=== PATIENT | female | born 1955 | race Caucasian/White ===

== ENCOUNTER 2017-11-24 16:06 | Emergency (ER) | payer OTHER, BC ==
--- NOTE | 2017-11-24 17:00 | EDM.PDOC ---
ED HPI GENERAL MEDICAL PROBLEM - General Chief Complaint: Lower Extremity Injury/Pain Stated Complaint: PAIN RT LEG Time Seen by Provider: 11/24/17 16:36 Source of Information: Reports: Patient History Limitations: Reports: No Limitations - History of Present Illness INITIAL COMMENTS - FREE TEXT/NARRATIVE: HISTORY AND PHYSICAL: History of present illness: Patient is a 62-year-old female who presents to the emergency room with complaints of right lawrence and ankle pain. She states she was walking and hit her leg against some material which caused immediate pain, swelling and bruising. She fell "on my butt". Denies hitting her head or any loss of conciousness. She is ambulatory does have pain to those areas with weightbearing. She denies any numbness or tingling to the affected extremity. Review of systems: As per history of present illness and below otherwise all systems reviewed and negative. Past medical history: As per history of present illness and as reviewed below otherwise noncontributory. Surgical history: As per history of present illness and as reviewed below otherwise noncontributory. Social history: No reported history of drug or alcohol abuse. Family history: As per history of present illness and as reviewed below otherwise noncontributory. Physical exam: General: Well-developed and well-nourished 62-year-old female. Alert and oriented. Nontoxic appearing and in no acute distress. HEENT: Atraumatic, normocephalic, pupils equal and reactive bilaterally, negative for conjunctival pallor or scleral icterus, mucous membranes moist, throat clear, neck supple, nontender, trachea midline. No drooling or trismus noted. No meningeal signs Lungs: Clear to auscultation, breath sounds equal bilaterally, chest nontender. Heart: S1S2, regular rate and rhythm without overt murmur Abdomen: Soft, nondistended, nontender. Negative for masses or hepatosplenomegaly. Negative for costovertebral tenderness. Pelvis: Stable nontender. Genitourinary: Deferred. Rectal: Deferred. Skin: Intact, warm, dry. Mild bruising and soft tissue swelling noted to the distal right tib-fib. No lesions or rashes noted. Extremities: Moves all extremities per self without difficulty or deficits. Does have mild tenderness over the distal right lawrence into the lateral malleolus. Strong pedal pulses bilaterally. Good flexion and extension of knee and ankle. negative for cords or calf pain. Neurovascular unremarkable. C-spine/Back: No pinpoint vertebral tenderness upon palpation. No crepitus, step -offs or obvious deformities. Patient is ambulatory Neuro: Awake, alert, oriented. Cranial nerves II through XII unremarkable. Cerebellum unremarkable. Motor and sensory unremarkable throughout. Exam nonfocal. Notes: I did offer the patient Toradol, which she declines at this time. Right tib-fib x-ray shows a questionable cortical lucency in the proximal fibular neck. The radiologist suggests correlating this with point tenderness. She does not have any tenderness along this area. Did share this information with the patient. States her RLE pain has improved somewhat. I will place her in a cam walker boot with crutches. I encouraged her to follow up with the orthopedic provider in the next 3-4 days. I will give her Flexeril (#12) for her low back pain. She does not have any sciatica related to this. She voices understanding and is agreeable to plan of care. She denies any further questions at this time. Diagnostics: X-ray right tib-fib, right ankle, lumbar spine Therapeutics: Ice, Camwalker boot, crutches Impression: Contusion Lumbago Plan: 1. Please use the doug wrap and crutches for the next 2-3 days for comfort. 2. Tylenol and/or ibuprofen as needed for pain management. You may use the Flexeril as needed for muscle spasms. This medication may cause drowsiness do not take it will driving her needing to be functioning outside of the house. 3. Follow-up with your primary care provider in the next couple days. Return to the ED as needed and as discussed. Definitive disposition and diagnosis as appropriate pending reevaluation and review of above. Onset: Today Duration: Minutes: Location: Reports: Back, Lower Extremity, Right Left Lower Leg Pain Score (Numeric/FACES): 5 - Related Data Allergies Allergy/AdvReac Type Severity Reaction Status Date / Time meperidine [From Demerol] Allergy Vomiting Verified 11/24/17 16:39 Home Meds: Home Meds . [No Known Home Meds] 11/24/17 [History] Past Medical History Endocrine/Metabolic History: Reports: Hyperthyroidism - Infectious Disease History Infectious Disease History: Reports: Chicken Pox, Measles, Mumps, Rubella Social & Family History - Family History Family Medical History: Noncontributory - Tobacco Use Smoking Status *Q: Current Every Day Smoker Years of Tobacco use: 39 Packs/Tins Daily: 0.5 - Caffeine Use Caffeine Use: Reports: Coffee - Recreational Drug Use Recreational Drug Use: No Review of Systems - Review of Systems Review Of Systems: ROS reveals no pertinent complaints other than HPI. ED EXAM, GENERAL - Physical Exam Exam: See Below (See dictation) Course - Vital Signs Last Recorded V/S: Last Vital Signs Temp 98.3 F 11/24/17 18:30 Pulse 84 11/24/17 18:30 Resp 12 11/24/17 18:30 BP 136/79 11/24/17 18:30 Pulse Ox 97 11/24/17 18:30 - Orders/Labs/Meds Orders: Active Orders 24 hr Category Date Time Status Lumbar Spine 2 or 3V [CR] Stat Exams 11/24/17 17:04 Taken Tibia Fibula Rt [CR] Stat Exams 11/24/17 16:37 Taken DME for Discharge [COMM] Stat Oth 11/24/17 17:44 Ordered Departure - Departure Time of Disposition: 18:39 Disposition: Home, Self-Care 01 Clinical Impression: Lumbago Qualifiers: Chronicity: acute Back pain laterality: midline Sciatica presence: without sciatica Qualified Code(s): M54.5 - Low back pain Contusion Qualifiers: Encounter type: initial encounter Contusion area: lower leg Laterality: right Qualified Code(s): S80.11XA - Contusion of right lower leg, initial encounter - Discharge Information Instructions: Contusion, [id number] Referrals: PCP,None [Primary Care Provider] - Forms: ED Department Discharge Additional Instructions: The following information is given to patients seen in the emergency department who are being discharged to home. This information is to outline your options for follow-up care. We provide all patients seen in our emergency department with a follow-up referral. The need for follow-up, as well as the timing and circumstances, are variable depending upon the specifics of your emergency department visit. If you don't have a primary care physician on staff, we will provide you with a referral. We always advise you to contact your personal physician following an emergency department visit to inform them of the circumstance of the visit and for follow-up with them and/or the need for any referrals to a consulting specialist. The emergency department will also refer you to a specialist when appropriate. This referral assures that you have the opportunity for follow-up care with a specialist. All of these measure are taken in an effort to provide you with optimal care, which includes your follow-up. Under all circumstances we always encourage you to contact your private physician who remains a resource for coordinating your care. When calling for follow-up care, please make the office aware that this follow-up is from your recent emergency room visit. If for any reason you are refused follow-up, please contact the Emergency Department at and asked to speak to the emergency department charge nurse. [facility] [address] [place] [id number] Special[facility] - [facility] [address] [place] [address], [address] [place] [address] 1. Please use the doug wrap and crutches for the next 2-3 days for comfort. 2. Tylenol and/or ibuprofen as needed for pain management. You may use the Flexeril as needed for muscle spasms. This medication may cause drowsiness do not take it will driving her needing to be functioning outside of the house. 3. Follow-up with your primary care provider in the next couple days. Return to the ED as needed and as discussed. - My Orders Last 24 Hours: My Active Orders 11/24/17 16:37 Tibia Fibula Rt [CR] Stat 11/24/17 17:04 Lumbar Spine 2 or 3V [CR] Stat 11/24/17 17:44 DME for Discharge [COMM] Stat - Assessment/Plan Last 24 Hours: My Active Orders 11/24/17 16:37 Tibia Fibula Rt [CR] Stat 11/24/17 17:04 Lumbar Spine 2 or 3V [CR] Stat 11/24/17 17:44 DME for Discharge [COMM] Stat
[2017-11-24 18:31] VITALS: BP 136/79
--- NOTE | 2017-11-25 18:11 | CR ---
EXAM DATE: 11/24/17 PATIENT'S AGE: 62 Patient: TATYANA PEREZ Facility: [place], [place] Site . Site : 1955 Study: XRay Extremity Right tib fib [id number]/29/2018 5:59:10 PM Ordering Physician: Doctor Quesada Final Report: INDICATION: PAIN, FALL TECHNIQUE: Two views of the right tibia/fibula COMPARISON: None FINDINGS: Bones: Questionable cortical lucency along the proximal fibular neck seen only on the AP projection. Joint spaces: Unremarkable. Soft tissues: Unremarkable. IMPRESSION: Questionable cortical lucency along the proximal fibular neck seen only on the AP projection. Consider dedicated right knee radiographs to further evaluate as well as point tenderness. Dictated by Anand Orantes MD @ 11/24/2017 6:03:37 PM Dictated by: Anand Orantes MD @ 11/24/2017 18:03:49 (Electronic Signature) Report Signed by Proxy. [facility]
--- NOTE | 2017-11-25 18:12 | CR ---
EXAM DATE: 11/24/17 PATIENT'S AGE: 62 Patient: TATYANA PEREZ Facility: [place], [place] Site . Site : 1955 Study: XRay Spine Lumbar [id number]/29/2018 5:59:37 PM Ordering Physician: Doctor Quesada Final Report: INDICATION: PAIN, FELL TECHNIQUE: Lumbar spine 3 view COMPARISON: None FINDINGS: Bones: Chronic remote traumatic deformity of the coccyx. No fractures or significant bone lesions. Joints: Mild degenerative changes. Soft tissues: Multiple calcifications overlying the right renal shadow. IMPRESSION: 1. No acute abnormality of the lumbar spine. 2. Multiple calcifications overlying the right renal shadow. Differential diagnosis includes intrarenal calculi versus gallstones MRI. Dictated by Anand Orantes MD @ 11/24/2017 6:06:26 PM Dictated by: Anand Orantes MD @ 11/24/2017 18:06:30 (Electronic Signature) Report Signed by Proxy. [facility]
== END 2017-11-24 18:45 | disposition home or self-care (01) ==
LOC: MW.ED 16:06
DX: S80.11XA Contusion of right lower leg, initial encounter (principal); M54.5 Low back pain; F17.210 Nicotine dependence, cigarettes, uncomplicated; Z88.5 Allergy status to narcotic agent; W22.8XXA Striking against or struck by other objects, initial encounter
CPT/HCPCS: 72100; 72100-26; 73590-26-RT; 73590-RT; 99283

== ENCOUNTER 2018-10-12 17:02 | Emergency (ER) | payer OTHER, BC ==
[2018-10-12 17:25] VITALS: BP 136/82
[2018-10-12] MEDS ORDERED: Lidocaine 1% 20 ML MDV INJECT ONE (17:27)
[2018-10-12] MEDS ORDERED: Bupivacaine 0.5% 10 ML SDV INJECT ONE (17:27)
--- NOTE | 2018-10-12 18:12 | EDM.PDOC ---
ED HPI GENERAL MEDICAL PROBLEM - General Chief Complaint: Upper Extremity Injury/Pain Stated Complaint: HAND INJURY Time Seen by Provider: 10/12/18 17:05 Source of Information: Reports: Patient History Limitations: Reports: No Limitations - History of Present Illness INITIAL COMMENTS - FREE TEXT/NARRATIVE: History of present illness: []Patient cut her left thumb at work on a sharp metal object. Not up-to-date with tetanus denies any other injuries Review of systems: As per history of present illness and below otherwise all systems reviewed and negative. Past medical history: As per history of present illness and as reviewed below otherwise noncontributory. Surgical history: As per history of present illness and as reviewed below otherwise noncontributory. Social history: No reported history of drug or alcohol abuse. Family history: As per history of present illness and as reviewed below otherwise noncontributory. Physical exam: General: Well developed, well nourished in NAD HEENT: Atraumatic, normocephalic, pupils reactive, negative for conjunctival pallor or scleral icterus, mucous membranes moist, throat clear, neck supple, nontender, trachea midline. Lungs: Clear to auscultation, breath sounds equal bilaterally, chest nontender. Heart: S1S2, regular, negative for clicks, rubs, or JVD. Abdomen: NABS, Soft, nondistended, nontender. Negative for masses or hepatosplenomegaly. Negative for costovertebral tenderness. Pelvis: Stable nontender. Genitourinary: Deferred. Rectal: Deferred. Extremities: +1 cm linear laceration. Neurovascular unremarkable. Neuro: Awake, alert, oriented. Cranial nerves II through XII unremarkable. Cerebellum unremarkable. Motor and sensory unremarkable throughout. Exam nonfocal. Skin:warm and dry Diagnostics: None Therapeutics: Wound sutured, tetanus status updated ED Course: Unremarkable Impression: Left thumb laceration Prescriptions: None Plan: Sutures out in 7-10 days Definitive disposition and diagnosis as appropriate pending reevaluation and review of above. left thumb laceration Pain Score (Numeric/FACES): 6 - Related Data Allergies Allergy/AdvReac Type Severity Reaction Status Date / Time meperidine [From Demerol] Allergy Vomiting Verified 10/12/18 17:24 Home Meds: Home Meds . [No Known Home Meds] 11/24/17 [History] Past Medical History HEENT History: Reports: None Cardiovascular History: Reports: None Gastrointestinal History: Reports: None Genitourinary History: Reports: None Psychiatric History: Reports: None Endocrine/Metabolic History: Reports: Hyperthyroidism - Infectious Disease History Infectious Disease History: Reports: Chicken Pox, Measles, Mumps Social & Family History - Family History Family Medical History: Noncontributory - Tobacco Use Smoking Status *Q: Current Every Day Smoker Years of Tobacco use: 40 Packs/Tins Daily: 0.5 - Caffeine Use Caffeine Use: Reports: Coffee - Recreational Drug Use Recreational Drug Use: No Review of Systems - Review of Systems Review Of Systems: ROS reveals no pertinent complaints other than HPI. ED EXAM, GENERAL - Physical Exam Exam: See Below (See history of present illness) Course - Vital Signs Last Recorded V/S: Last Vital Signs Temp 98.0 F 10/12/18 17:23 Pulse 94 10/12/18 17:23 Resp 20 10/12/18 17:23 BP 136/82 10/12/18 17:23 Pulse Ox 95 10/12/18 17:23 - Orders/Labs/Meds Meds: Medications Discontinued Medications Generic Name Dose Route Start Last Admin Trade Name Eron PRN Reason Stop Dose Admin Bupivacaine HCl 10 ml 10/12/18 17:27 Sensorcaine-Mpf 0.5% INJECT 10/12/18 17:28 ONETIME ONE Lidocaine HCl Confirm 10/12/18 17:32 Xylocaine-Mpf 1% Administered 10/12/18 17:33 Dose 10 mls @ as directed .ROUTE .STK-MED ONE Lidocaine HCl 20 ml 10/12/18 17:27 Xylocaine 1% INJECT 10/12/18 17:28 ONETIME ONE Departure - Departure Time of Disposition: 18:10 Disposition: Home, Self-Care 01 Condition: Good Clinical Impression: Laceration of left thumb Qualifiers: Encounter type: initial encounter Damage to nail status: without damage Foreign body presence: without foreign body Qualified Code(s): S61.012A - Laceration without foreign body of left thumb without damage to nail, initial encounter - Discharge Information *PRESCRIPTION DRUG MONITORING PROGRAM REVIEWED*: No *COPY OF PRESCRIPTION DRUG MONITORING REPORT IN PATIENT JAN: No Referrals: PCP,Unknown [Primary Care Provider] - Additional Instructions: The following information is given to patients seen in the emergency department who are being discharged to home. This information is to outline your options for follow-up care. We provide all patients seen in our emergency department with a follow-up referral. The need for follow-up, as well as the timing and circumstances, are variable depending upon the specifics of your emergency department visit. If you don't have a primary care physician on staff, we will provide you with a referral. We always advise you to contact your personal physician following an emergency department visit to inform them of the circumstance of the visit and for follow-up with them and/or the need for any referrals to a consulting specialist. The emergency department will also refer you to a specialist when appropriate. This referral assures that you have the opportunity for follow-up care with a specialist. All of these measure are taken in an effort to provide you with optimal care, which includes your follow-up. Under all circumstances we always encourage you to contact your private physician who remains a resource for coordinating your care. When calling for follow-up care, please make the office aware that this follow-up is from your recent emergency room visit. If for any reason you are refused follow-up, please contact the [facility] Emergency Department at and asked to speak to the emergency department charge nurse. Sutures out in `10-14 days,Take meds as directed, follow up with your primary care physician, return to ER if symptoms worsen or change. [facility] [address] [place] [id number]
[2018-10-12] MEDS ORDERED: Diphtheria,Pertussis(Acell),Tetanus Vaccine 0.5 ML Syringe IM ONE (18:20)
== END 2018-10-12 18:40 | disposition home or self-care (01) ==
LOC: MW.ED 17:02
DX: S61.012A Laceration without foreign body of left thumb without damage to nail, initial encounter (principal); W26.8XXA Contact with other sharp object(s), not elsewhere classified, initial encounter; Z23 Encounter for immunization; Z88.8 Allergy status to other drugs, medicaments and biological substances
CPT/HCPCS: 12001; 90471; 90715; 99282; J3490; J2001

== ENCOUNTER 2022-04-09 14:08 | Emergency (ER) | payer MEDICARE, OTHER ==
[2022-04-09 15:26] VITALS: BP 134/77; PULSE 87
[2022-04-09] MEDS ORDERED: Sodium Chloride 0.9% 2.5 ML Syringe FLUSH PRN (16:01)
[2022-04-09] MEDS ORDERED: Sodium Chloride 0.9% 10 ML Syringe FLUSH PRN (16:01)
[2022-04-09] MEDS ORDERED: Lidocaine 5% 700 MG Patch TOP ONE (16:06)
[2022-04-09] MEDS: Acetaminophen 500 MG Tab PO ONE ×2 (17:05→17:11)
[2022-04-09 17:24] LABS: CARBON DIOXIDE,CO2 26.7 mmol/L (21.0-32.0)
== END 2022-04-09 19:17 | disposition left against medical advice (07) ==
LOC: MW.ED 14:08
DX: R42 Dizziness and giddiness (principal); M25.511 Pain in right shoulder; R51.9 Headache, unspecified; Z88.8 Allergy status to other drugs, medicaments and biological substances
CPT/HCPCS: 36415; 71045; 80053; 81003; 84484; 85025; 85610; 93005; 99284; A9270; J3490

== ENCOUNTER 2024-09-12 06:45 | Emergency (ER) | payer MEDICARE, OTHER ==
[2024-09-12 07:23] LABS: BASOPHILS ABSOLUTE AUTO 0.04 K/uL (0.00-0.20); BASOPHILS PERCENT AUTO 0.4 % (0.0-1.0); EOSINOPHILS PERCENT AUTO 1.1 % (0.0-6.0); HEMATOCRIT 39.1 % (37.0-47.0); HEMOGLOBIN 13.7 g/dL (12.0-16.0); IMMATURE GRAN ABSOLUTE AUTO 0.02 K/uL (0.00-0.05); IMMATURE GRAN PERCENT AUTO 0.2 % (0.0-0.4); LYMPHOCYTES ABSOLUTE AUTO 3.38 K/uL (1.00-4.80); LYMPHOCYTES PERCENT AUTO 35.9 % (24.0-44.0); MEAN CORPUSCULAR HEMOGLOBIN 32.2 pg (28.0-32.0); MEAN PLATELET VOLUME 10.7 fL (9.4-12.3); MONOCYTES ABSOLUTE AUTO 0.63 K/uL (0.00-0.80); MONOCYTES PERCENT AUTO 6.7 % (0.0-8.0); NEUTROPHILS ABSOLUTE AUTO 5.25 K/uL (1.80-7.70); NEUTROPHILS PERCENT AUTO 55.7 % (41.0-71.0); PLATELET COUNT,PLT 235 K/uL (150-400); RED BLOOD CELL COUNT 4.25 M/uL (4.10-5.30); WHITE BLOOD CELL COUNT,WBC 9.42 K/uL (3.9-11.3)
[2024-09-12 07:55] LABS: ALANINE AMINOTRANSFERASE,ALT 37 IU/L (14-63); ALBUMIN 3.7 g/dL (3.4-5.0); ALKALINE PHOSPHATASE 96 U/L (46-116); ASPARTATE AMNIOTRANSFERASE,AST 19 IU/L (15-37); BILIRUBIN TOTAL 0.3 mg/dL (0.2-1.0); BLOOD UREA NITROGEN,BUN 22 mg/dL (7.0-18.0); CALCIUM 9.1 mg/dL (8.5-10.1); CARBON DIOXIDE,CO2 29.4 mmol/L (21.0-32.0); CHLORIDE,CL 100 mmol/L (98-107); CREATININE 0.7 mg/dL (0.6-1.0); EST CRCL DRUG DOSING (CG) 75.84 mL/min; ESTIMATED GFR 95 mL/min (>60); GLUCOSE RANDOM 179 mg/dL (74-106); POTASSIUM,K 4.2 mmol/L (3.5-5.1); PROTEIN TOTAL,TP 7.3 g/dL (6.4-8.2); SODIUM,NA 140 mmol/L (136-145)
[2024-09-12] MEDS: Iopamidol 755 MG/ML 500 ML Multipack Bottle IVPUSH STA (08:30)
[2024-09-12] MEDS: Ketorolac 30 MG/ML SDV IVPUSH ONE (09:54)
[2024-09-12] MEDS: Aspirin 81 MG Tab.Chew PO ONE (10:04)
[2024-09-12 10:37] VITALS: BP 120/82; PULSE 62
== END 2024-09-12 10:37 | disposition home or self-care (01) ==
LOC: MW.ED 06:45
DX: R07.89 Other chest pain (principal); M54.9 Dorsalgia, unspecified; I10 Essential (primary) hypertension; E78.00 Pure hypercholesterolemia, unspecified; E11.9 Type 2 diabetes mellitus without complications; F17.210 Nicotine dependence, cigarettes, uncomplicated; Z88.8 Allergy status to other drugs, medicaments and biological substances
CPT/HCPCS: 36415; 71046; 71275; 80053; 84484; 85025; 93005; 96374; 99285; A9270; J1885; Q9967; 93010; 99284